=== PATIENT | female | born 1995 | race Caucasian/White ===

== ENCOUNTER 2024-07-06 10:45 | Emergency (ER) | payer MEDICAID ==
[~2024-07-06] VITALS: Ht 162.6 cm; Wt 86.0 kg
[~2024-07-06 10:45] MED LIST: BUPR-72 PO; BUPR1FIL3 SL; CITA20TA28 PO; HYDR-3686 PO; NICO-687 TD; NICO-907 BC; TRAZ-251 PO
[2024-07-06 11:50] LABS: BILIRUBIN,URINE NEGATIVE (Neg); CLARITY,URINE SLIGHTLY CLOUDY (Clear); COLOR,URINE YELLOW (Yellow); GLUCOSE, URINE NEGATIVE (Neg); KETONES,URINE NEGATIVE (Neg); LEUKOCYTE ESTERASE ,URINE NEGATIVE (Neg); NITRITES, URINE NEGATIVE (Neg); OCCULT BLOOD,URINE NEGATIVE (Neg); PROTEIN,URINE NEGATIVE (Neg); UROBILINOGEN,URINE 0.2 E.U/dL (0.2-1.0)
[2024-07-06 11:55] LABS: UA COLLECTION TYPE CLN CATCH MIDSTREAM
[2024-07-06 11:56] LABS: MUCUS STRANDS FEW /LPF (Neg); RBC,URINE 0-2 /HPF (0-2); SQUAMOUS EPITHELIAL CELL,UR MODERATE /LPF (FEW); WBC,URINE 0-4 /HPF (0-4)
[2024-07-06 11:57] LABS: BACTERIA,URINE NONE SEEN /HPF (Neg)
[2024-07-06 11:58] LABS: URINE HCG NEGATIVE (NEG)
[2024-07-06 12:59] VITALS: BP 116/81; PULSE 92; RESP 16; TEMP 97.6; O2SAT 98
[2024-07-06] MEDS ORDERED: DIF150T PO (13:12)
[2024-07-06] MEDS ORDERED: METR-159 PO (13:12)
== END 2024-07-06 13:14 | disposition home or self-care (01) ==
LOC: ER 10:46
DX: M54.50 Low back pain, unspecified (principal); F17.200 Nicotine dependence, unspecified, uncomplicated; Z79.899 Other long term (current) drug therapy
CPT/HCPCS: 81001; 81025; 87210; 99283

== ENCOUNTER 2025-05-01 13:09 | Emergency (ER) | payer MEDICAID ==
[~2025-05-01] VITALS: Ht 162.6 cm; Wt 83.6 kg
[~2025-05-01 13:09] MED LIST changes: +CITA-178 PO; -CITA20TA28 PO
[2025-05-01 13:13] VITALS: BP 126/77; TEMP 98
[2025-05-01] MEDS ORDERED: BUPR1FIL7 SL (14:59)
--- NOTE | 2025-05-01 14:59 | Physician Documentation ---
HPI ~ General Chief Complaint: Medication Request Stated Complaint: MEDICATION REQUEST SUBOXONE Time Seen by MD: 13:56 Primary Medical Doctor: MD BISHOP History of Present Illness HPI Comments Patient requesting Suboxone refill for today and tomorrow. She states she will be able to obtain further prescription from [facility] she can be monitored. Without Medications Since: May 01, 2025 Medication Reconciliation Allergies: Coded Allergies: No Known Allergies (Unverified , 07/06/24) Scheduled Buprenorphine HCl/Naloxone HCl (Suboxone 12 mg-3 mg Sl Film), 2 STRIP SL DAILY Buprenorphine Hcl/Naloxone Hcl (Suboxone 8 Mg-2 Mg Sl Film), 1 FILM SL BID Bupropion HCl (Bupropion HCl Sr), 150 MG PO BID@0800,1700 Citalopram Hydrobromide* (Celexa*), 20 MG PO BID Nicotine 21 MG Patch* (Habitrol 21 MG Patch*), 1 PATCH TD DAILY Scheduled PRN Hydroxyzine Hcl* (Atarax*), 50 MG PO Q4H PRN for anxiety Nicotine Polacrilex (Nicotine Lozenge), 2 MG BC Q2H PRN for NICOTINE CRAVING Trazodone HCl (Trazodone HCl), 100 MG PO DAILY@20 PRN for insomnia Discontinued Medications Buprenorphine HCl/Naloxone HCl (Suboxone 12 mg-3 mg Sl Film), 2 STRIP SL DAILY Past Medical History Smoking Status: Never smoker Review of Systems All Other Systems at this time: Reviewed and Negative ROS As stated above in the HPI, otherwise all systems are reviewed and negative. Physical Exam Physical Exam Vital Signs: Temperature: 98.0, Source: Temporal, Heart Rate: 68, Respiratory Rate: 16, BP: 126/77, Pulse Oximetry: 96, Weight: 83.600 Oxygen Flow Rate: 0 Physical Exam General: Alert, no apparent distress. Respiratory: Lungs clear, no respiratory distress. Cardiovascular: Regular rate and rhythm, no murmurs. Neurologic: Oriented x4. Psychiatric: Normal mood and affect. Skin: Normal color, warm and dry. No edema, no ecchymosis. Progress Results/Orders Results/Orders Vital Signs 05/01/25 05/01/25 13:13 15:03 Temp 98.0 Pulse 68 65 Resp 16 18 B/P (MAP) 126/77 Pulse Ox 96 98 O2 Flow Rate 0 Medical Decision Making Findings Refilled the patient's prescription as requested. Advise her if she wants further prescription of Suboxone she will need to [facility] source of Differential Dx:Considerations: Include: Adverse circumstances, Economic, Psychosocial, Medical services unavail., Medication refill, Medication non- compliance, Other Departure Disposition: 01 HOME / SELF CARE / HOMELESS Impression: Primary Impression: Opioid dependence Discharge Instructions: Medicine Refill at the Emergency Department Referrals: NO PRIMARY CARE PROVIDER (PCP) Prescriptions Buprenorphine HCl/Naloxone HCl (Suboxone 12 mg-3 mg Sl Film) 12 Mg-3 Mg Film 2 STRIP SL DAILY for 2 Days, #4 STRIP 0 Refills Prov: VALENTÍN CABALLERO NP 05/01/25 Education Educated: Patient Educated regarding: diagnosis Signature Scribe Signature: g Attestation: Scribed for Valentín Caballero [employer] Consult[employer] by Valentín Caballero - [email or web address] . 05/01/25 18:48 VALENTÍN CABALLERO NP May 01, 2025 14:59
[2025-05-01 15:03] VITALS: PULSE 65; RESP 18; O2SAT 98
== END 2025-05-01 15:20 | disposition home or self-care (01) ==
LOC: ER 13:10
DX: F11.20 Opioid dependence, uncomplicated (principal); Z79.899 Other long term (current) drug therapy
CPT/HCPCS: 99281